=== PATIENT | female | born 1985 | race Caucasian/White ===

== ENCOUNTER 2017-07-31 22:59 | Emergency (ER) | payer MEDICAID ==
--- NOTE | 2017-07-31 23:16 | Emergency Department Record ---
History of Present Illness - General Chief complaint: Rash Stated complaint: RASH ALL OVER BODY Time Seen by Provider: 07/31/17 23:05 Source: Patient Mode of Arrival: Ambulatory Limitations: No limitations - History of Present Illness Initial comments: 32 yo female presents to ED for evaluation of a rash "all over my body" that began 3-4 days ago. Patient reports erythematous lesions diffusely that are itching in addition to mild swelling/redness to the right upper eyelid. Patient denies difficulty breathing, wheezing, or throat swelling symptoms. Patient denies any recent exposures. Patient denies health problems at her baseline. MD complaint: Rash Onset/Timin -: Days(s) Location: Generalized Severity: Moderate Quality: Other Consistency: Intermittent Improves with: None Worsens with: None Context: None Associated symptoms: Itching Treatments Prior to Arrival: None - Related Data Previous Rx's Medication Instructions Recorded Diphenhydramine HCl [Benadryl] 50 mg PO Q6H PRN #20 cap 07/31/17 Famotidine [Pepcid] 40 mg PO DAILY #14 tablet 07/31/17 Prednisone [Prednisone 20Mg] 20 mg PO TID #12 tab 07/31/17 Allergies Allergy/AdvReac Type Severity Reaction Status Date / Time No Known Allergies Allergy Unverified 09/01/16 10:12 Review of Systems Constitutional: Denies: Chills, Fever, Malaise, Night sweats Eyes: Denies: Eye discharge, Eye pain ENT: Denies: Congestion, Ear pain, Epistaxis Respiratory: Denies: Cough, Dyspnea Cardiovascular: Denies: Chest pain, Dyspnea on exertion Endocrine: Denies: Fatigue, Heat or cold intolerance Gastrointestinal: Denies: Abdominal pain, Nausea, Vomiting Genitourinary: Denies: Incontinence, Retention Musculoskeletal: Denies: Arthralgia, Back pain, Gout, Joint swelling Skin: Reports: Rash. Denies: Bruising, Change in color, Change in hair/nails Neurological: Denies: Abnormal gait, Confusion, Headache, Seizure Psychiatric: Denies: Anxiety Hematological/Lymphatic: Denies: Anemia, Blood Clots Physical Exam - General General Appearance: Alert, Oriented x3, Cooperative, No acute distress Limitations: No limitations - Head Head exam: Atraumatic, Normocephalic, Normal inspection Head exam detail: negative: Abrasion, Contusion, Hernandez's sign, General tenderness, Hematoma, Laceration - Eye Eye exam: Normal appearance. negative: Conjunctival injection, Periorbital swelling, Periorbital tenderness, Scleral icterus - ENT Ear exam: negative: Auricular hematoma, Auricular trauma Nasal Exam: negative: Active bleeding, Discharge, Dried blood, Foreign body Mouth exam: negative: Drooling, Laceration, Muffled voice, Tongue elevation - Neck Neck exam: Normal inspection. negative: Meningismus, Tenderness - Respiratory Respiratory exam: Normal lung sounds bilaterally. negative: Rales, Respiratory distress, Rhonchi, Stridor - Cardiovascular Cardiovascular Exam: Regular rate, Normal rhythm, Normal heart sounds - GI/Abdominal GI/Abdominal exam: Soft. negative: Rebound, Rigid, Tenderness - Rectal Rectal exam: Deferred - exam: Deferred - Extremities Extremities exam: Other (Mild hives present to the extremities diffusely). negative: Calf tenderness, Pedal edema, Tenderness - Back Back exam: Denies: CVA tenderness (R), CVA tenderness (L) - Neurological Neurological exam: Alert, Normal gait, Oriented X3 - Psychiatric Psychiatric exam: Normal affect, Normal mood - Skin Skin exam: Erythema Type of lesion: Rash Distribution of rash: Generalized Description of rash: Urticarial Course - Reevaluation(s) Reevaluation #1: 07/31/17 23:14 Examination appears c/w faint hives diffusely, will initiate treatment with Prednisone, Benadryl, and Pepcid as directed. Patient has no systemic signs of anaphylaxis, and appears stable for discharge at this time. Disposition Disposition: Discharge Clinical Impression: Hives Disposition: Home, Self-Care Condition: (2) Stable Instructions: Urticaria (ED) Additional Instructions: Return to ED if your symptoms worsen or if you have any concerns. Prednisone, Benadryl, and Pepcid as directed. Follow-up with your family doctor in 3-5 days as directed. Prescriptions: Diphenhydramine HCl [Benadryl] 50 mg PO Q6H PRN #20 cap PRN Reason: Itch/Hives Famotidine [Pepcid] 40 mg PO DAILY #14 tablet Prednisone [Prednisone 20Mg] 20 mg PO TID #12 tab Forms: Patient Portal Access Time of Disposition: 23:18 Quality - Quality Measures Quality Measures: N/A - Blood Pressure Screening Does Patient Have Any of the Following: No Blood Pressure Classification: Pre-Hypertensive BP Reading Systolic Measurement: 131 Diastolic Measurement: 84 Screening for High Blood Pressure: < Pre-Hypertensive BP, F/U Documented > [ G8950] Pre-Hypertensive Follow-up Interventions: Referral to alternative/primary care provider.
[2017-07-31] MEDS: DIPHENHYDRAMINE HCL 25 MG CAPSULE PO ONE (23:20)
[2017-07-31] MEDS: PREDNISONE 20 MG TAB PO ONE (23:20)
[2017-07-31] MEDS: FAMOTIDINE 20MG TABLET PO ONE (23:20)
== END 2017-07-31 23:25 | disposition home or self-care (01) ==
LOC: ER 22:59
DX: L50.9 Urticaria, unspecified (principal)
CPT/HCPCS: 99282; J7512

== ENCOUNTER 2018-03-22 21:28 | Emergency (ER) | payer BC ==
[2018-03-22] MEDS ORDERED: AZITHROMYCIN 500 MG TABLET PO ONE (21:50)
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
== END 2018-03-22 21:59 | disposition home or self-care (01) ==
LOC: ER 21:28
DX: H66.91 Otitis media, unspecified, right ear (principal); L55.1 Sunburn of second degree; R05 Cough; F17.210 Nicotine dependence, cigarettes, uncomplicated
CPT/HCPCS: 99282

== ENCOUNTER 2019-07-01 22:32 | Emergency (ER) | payer BC ==
[2019-07-01] MEDS ORDERED: KETOROLAC 30 MG/ML VIAL IVP ONE (22:39)
[2019-07-01] MEDS ORDERED: ASPIRIN 81 MG CHEWABLE TABLET PO ONE (22:39)
--- NOTE | 2019-07-01 22:44 | Emergency Department Record ---
History of Present Illness - General Chief Complaint: Chest Pain Stated Complaint: DIZZINESS,CHETY PAIN Time Seen by Provider: 07/01/19 22:33 Source: Patient Mode of Arrival: Ambulatory Limitations: No limitations - History of Present Illness Initial Comments: 34 yo female presents to ED for evaluation of chest pain symptoms that have been intermittent for the past 8 hours. Patient denies any activity that improves or worsens her symptoms, denies fevers, chills, or pain with deep inspiration. Patient denies history of DVT or PE, denies calf pain or swelling. Patient denies health problems at her baseline. MD Complaint: Chest pain Onset/Timin -: Hour(s) Pain Location: Left chest Pain Radiation: LUE Severity: Moderate Quality: Aching Consistency: Intermittent Improves With: Nothing Worsens With: Nothing Treatments Prior to Arrival: None - Related Data Allergies Allergy/AdvReac Type Severity Reaction Status Date / Time dust Allergy Uncoded 11/07/18 17:48 dust mites Allergy Uncoded 11/07/18 17:48 pet dander Allergy Uncoded 11/07/18 17:48 Review of Systems Constitutional: Denies: Chills, Fever, Malaise, Night sweats Eyes: Denies: Eye discharge, Eye pain ENT: Denies: Congestion, Ear pain, Epistaxis Respiratory: Denies: Cough, Dyspnea Cardiovascular: Reports: Chest pain. Denies: Dyspnea on exertion Endocrine: Denies: Fatigue, Heat or cold intolerance Gastrointestinal: Denies: Abdominal pain, Nausea, Vomiting Genitourinary: Denies: Incontinence, Retention Musculoskeletal: Denies: Arthralgia, Back pain Skin: Denies: Bruising, Change in color Neurological: Denies: Abnormal gait, Confusion, Headache, Seizure Psychiatric: Denies: Anxiety Hematological/Lymphatic: Denies: Anemia, Blood Clots Past Medical History - SOCIAL HISTORY Smoking Status: Current every day smoker - RESPIRATORY Hx Respiratory Disorders: Yes Comment:: seasonal allergies - CARDIOVASCULAR Hx Cardio Disorders: No - NEURO Hx Neuro Disorders: No - GI Hx GI Disorders: No - Hx Genitourinary Disorders: No - ENDOCRINE Hx Endocrine Disorders: No - MUSCULOSKELETAL Hx Musculoskeletal Disorders: No - PSYCH Hx Psych Problems: No - HEMATOLOGY/ONCOLOGY Hx Hematology/Oncology Disorders: No Family Medical History Any Significant Family History?: Yes Hx Cancer: Mother, Brother/Sister, Grandparents *Diabetes Comment: aunts/uncles Hx Heart Disease: Mother Hx Stroke: Father Physical Exam - General General Appearance: Alert, Oriented x3, Cooperative, Mild distress Limitations: No limitations - Head Head exam: Atraumatic, Normocephalic, Normal inspection Head exam detail: negative: Abrasion, Contusion, Hernandez's sign, General tenderness, Hematoma, Laceration - Eye Eye exam: Normal appearance. negative: Conjunctival injection, Periorbital swelling, Periorbital tenderness, Scleral icterus - ENT Ear exam: negative: Auricular hematoma, Auricular trauma Nasal Exam: negative: Active bleeding, Discharge, Dried blood, Foreign body Mouth exam: negative: Drooling, Laceration, Muffled voice, Tongue elevation - Neck Neck exam: Normal inspection. negative: Meningismus, Tenderness - Respiratory Respiratory exam: Normal lung sounds bilaterally. negative: Rales, Respiratory distress, Rhonchi, Stridor - Cardiovascular Cardiovascular Exam: Regular rate, Normal rhythm, Normal heart sounds - GI/Abdominal GI/Abdominal exam: Soft. negative: Rebound, Rigid, Tenderness - Rectal Rectal exam: Deferred - exam: Deferred - Extremities Extremities exam: Normal inspection. negative: Pedal edema, Tenderness - Back Back exam: Denies: CVA tenderness (R), CVA tenderness (L) - Neurological Neurological exam: Alert, Normal gait, Oriented X3 - Psychiatric Psychiatric exam: Normal affect, Normal mood - Skin Skin exam: Normal color. negative: Abrasion Type of lesion: negative: abrasion Course - Reevaluation(s) Reevaluation #1: 07/01/19 22:38 EKG: NSR 92 Normal axis, normal intervals No acute ST-T wave changes PERC clinical decision rule was applied, and the patient does not have any of the following: -Age > 50 years -Pulse > 100 -Oxygen Saturation < 94% -History of Hemoptysis -Unilateral leg swelling -History or PE/DVT -Recent surgery or Trauma -Oral contraceptive/Hormone use Laboratory studies were reviewed and appear grossly unremarkable for an acute process except for the following: Hgb 10.1 The patient was deemed to be low-risk for cardiac disease based on the patients history and evaluation in the ED, HEART Score was applied and found to be 0. As a result, repeat Troponin in 3-hours appears appropriate and if negative for myocardial injury, the patient may be discharged home with appropriate outpatient follow-up for further evaluation. 07/01/19 23:06 Reevaluation #2: 07/01/19 23:14 CXR: No acute process Patient was updated on all results as well as plan for repeat Troponin at 1:35 AM as her Heart Score is 0. Patient and her SO are in agreement with the plan of care as discussed. Reevaluation #3: 07/02/19 02:03 Repeat Troponin appears negative for myocardial injury. Patient appears stable for discharge at this time. Medical Decision Making - Lab Data Result diagrams: 07/01/19 22:35 07/01/19 22:35 Disposition Disposition: Discharge Clinical Impression: Atypical chest pain Disposition: Home, Self-Care Condition: (2) Stable Instructions: Chest Pain (ED) Additional Instructions: Return to ED if your symptoms worsen or if you have any concerns. Follow-up with your family doctor in 3-5 days as directed. Forms: Patient Portal Access Time of Disposition: 02:03 Quality - Quality Measures Quality Measures: N/A - Blood Pressure Screening Does Patient Have Any of the Following: No Blood Pressure Classification: Pre-Hypertensive BP Reading Systolic Measurement: 130 Diastolic Measurement: 81 Screening for High Blood Pressure: < Pre-Hypertensive BP, F/U Documented > [G8950] Pre-Hypertensive Follow-up Interventions: Referral to alternative/primary care provider.
[2019-07-01 22:48] LABS: ABSOLUTE NEUTROPHIL COUNT 6.02; BASO % 0.2 % (0-6); EOS % 0.9 % (0-6); GRAN % 64.2 % (47-80); HEMATOCRIT 33.1 % (35.0-47.0); HEMOGLOBIN 10.1 gm/dl (11.6-16.0); LYMPH % 27.5 % (16-45); MEAN CELL VOLUME 74.2 fl (81-97); MEAN CORPUSCULAR HEMOGLOBIN 22.6 pg (27-33); MEAN CORPUSCULAR HGB CONC 30.5 g/dl (32-36); MEAN PLATELET VOLUME 10.7 fl (7.4-10.4); MONO % 7.2 % (0-9); PLATELET COUNT 212 K/uL (130-400); RED BLOOD COUNT 4.46 M/uL (3.80-5.40); RED CELL DISTRIBUTION WIDTH 16.5 % (11.5-14.5); WHITE BLOOD COUNT W/O DIFF 9.4 K/uL (4.2-12.2)
[2019-07-01 22:57] LABS: BLOOD UREA NITROGEN 9 mg/dL (6-20); CREATININE 0.7 mg/dL (0.5-0.9); EST GLOMERULAR FILTRATION RATE > 60 mL/min
[2019-07-01 22:58] LABS: TOTAL PROTEIN 7.3 g/dL (6.6-8.7)
[2019-07-01 23:00] LABS: GLUCOSE,RANDOM 94 mg/dL (74-109)
[2019-07-01 23:03] LABS: ALB/GLOB RATIO 1.6 (1.1-1.8); ALBUMIN 4.5 g/dL (4.0-5.0); ALKALINE PHOSPHATASE 88 U/L (35-104); ALT/SGPT 8 U/L (<33); AST/SGOT 14 U/L (10.0-35.0)
--- NOTE | 2019-07-03 07:24 | RADIOLOGY REPORT ---
EXAM: CHEST, TWO VIEWS HISTORY: INTERMITTENT LEFT SIDED CHEST PAIN AND DIZZINESS FOR EIGHT HOURS. TECHNIQUE: Two views of the chest were obtained. Comparison: Prior chest radiographs 11/13/17. FINDINGS: The cardiomediastinal silhouette appears within normal limits. No focal consolidation, pneumothorax, or pleural effusions are identified. The vertebral body heights and alignment appear within normal limits. IMPRESSION: NO ACUTE CARDIOPULMONARY PROCESS IDENTIFIED. JOB NUMBER: [id number] MTDD
== END 2019-07-02 02:17 | disposition home or self-care (01) ==
LOC: ER 22:32
DX: R07.89 Other chest pain (principal); R42 Dizziness and giddiness; F17.210 Nicotine dependence, cigarettes, uncomplicated
CPT/HCPCS: 99284 ×2; 96374; 85025; 80053; 84484; 71046; 93005; 93010; J1885

== ENCOUNTER 2019-11-09 16:53 | Emergency (ER) | payer BC ==
--- NOTE | 2019-11-09 17:16 | Emergency Department Record ---
History of Present Illness - General Chief complaint: Flu Like Symptoms Stated complaint: chest congestion,cough Time Seen by Provider: 11/09/19 16:57 Source: Patient Mode of Arrival: Ambulatory Limitations: No limitations - History of Present Illness Initial comments: pt has been sick for a week with congestion, fevers, cough productive green. she went to [facility] 4 days ago and had a negative flu swab. her symptoms continued and worsened. Onset/Timin -: Week(s) Location: Generalized Severity scale (1-10): 3 Quality: Aching Consistency: Constant Improves with: None Worsens with: None Associated Symptoms: Headaches, Other - [place] Coma Scale Eye Response: (4) Open spontaneously Motor Response: (6) Obeys commands Verbal Response: (5) Oriented [place] Total: 15 - Related Data Previous Rx's Medication Instructions Recorded Azithromycin [Zithromax] 250 mg PO DAILY #4 tab 11/09/19 Allergies Allergy/AdvReac Type Severity Reaction Status Date / Time dust Allergy Uncoded 11/07/18 17:48 dust mites Allergy Uncoded 11/07/18 17:48 pet dander Allergy Uncoded 11/07/18 17:48 Travel Screening - Travel/Exposure Within Last 30 Days Have you traveled within the last 30 days?: No Review of Systems Reviewed: No additional complaints except as noted below Constitutional: Reports: As per HPI. Denies: Chills, Fever, Malaise, Night sweats, Weakness, Weight change Eyes: Reports: As per HPI. Denies: Eye discharge, Eye pain, Photophobia, Vision change ENT: Reports: As per HPI. Denies: Congestion, Dental pain, Ear pain, Epistaxis, Hearing loss, Throat pain Respiratory: Reports: As per HPI. Denies: Cough, Dyspnea, Hemoptysis, Stridor, Wheezes Cardiovascular: Reports: As per HPI. Denies: Arrhythmia, Chest pain, Dyspnea on exertion, Edema, Murmurs, Orthopnea, Palpitations, Paroxysmal nocturnal dyspnea, Rheumatic Fever, Syncope Endocrine: Reports: As per HPI. Denies: Fatigue, Heat or cold intolerance, Polydipsia, Polyuria Gastrointestinal: Reports: As per HPI. Denies: Abdominal pain, Constipation, Diarrhea, Hematemesis, Hematochezia, Melena, Nausea, Vomiting Genitourinary: Reports: As per HPI. Denies: Abnormal menses, Discharge, Dyspareunia, Dysuria, Frequency, Hematuria, Incontinence, Retention, Urgency Musculoskeletal: Reports: As per HPI. Denies: Arthralgia, Back pain, Gout, Joint swelling, Myalgia, Neck pain Skin: Reports: As per HPI. Denies: Bruising, Change in color, Change in hair/nails, Lesions, Pruritus, Rash Neurological: Reports: As per HPI. Denies: Abnormal gait, Confusion, Headache, Numbness, Paresthesias, Seizure, Tingling, Tremors, Vertigo, Weakness Psychiatric: Reports: As per HPI. Denies: Anxiety, Auditory hallucinations, Depression, Homicidal thoughts, Suicidal thoughts, Visual hallucinations Hematological/Lymphatic: Reports: As per HPI. Denies: Anemia, Blood Clots, Easy bleeding, Easy bruising, Swollen glands Past Medical History - SOCIAL HISTORY Smoking Status: Current every day smoker - RESPIRATORY Hx Respiratory Disorders: Yes Comment:: seasonal allergies - CARDIOVASCULAR Hx Cardio Disorders: No - NEURO Hx Neuro Disorders: No - GI Hx GI Disorders: No - Hx Genitourinary Disorders: No - ENDOCRINE Hx Endocrine Disorders: No - MUSCULOSKELETAL Hx Musculoskeletal Disorders: No - PSYCH Hx Psych Problems: No - HEMATOLOGY/ONCOLOGY Hx Hematology/Oncology Disorders: No Family Medical History Any Significant Family History?: Yes Hx Cancer: Mother, Brother/Sister, Grandparents *Diabetes Comment: aunts/uncles Hx Heart Disease: Mother Hx Stroke: Father Physical Exam - General General Appearance: Alert, Oriented x3, Cooperative, Mild distress - Head Head exam: Normal inspection - Eye Eye exam: Normal appearance, PERRL, EOMI Pupils: Normal accommodation - ENT ENT exam: Normal exam, Mucous membranes moist, Normal external ear exam, Normal orophraynx Ear exam: Normal external inspection. negative: External canal tenderness Nasal Exam: Normal inspection. negative: Discharge, Sinus tenderness Mouth exam: Normal external inspection, Tongue normal Teeth exam: Normal inspection. negative: Dental caries Throat exam: Normal inspection. negative: Tonsillar erythema, Tonsillar exudate - Neck Neck exam: Normal inspection, Full ROM. negative: Tenderness - Respiratory Respiratory exam: Normal lung sounds bilaterally. negative: Respiratory distress - Cardiovascular Cardiovascular Exam: Regular rate, Normal rhythm, Normal heart sounds - GI/Abdominal GI/Abdominal exam: Soft, Normal bowel sounds. negative: Tenderness - Rectal Rectal exam: Deferred - exam: Deferred - Extremities Extremities exam: Normal inspection, Full ROM, Normal capillary refill. negative: Tenderness - Back Back exam: Reports: Normal inspection, Full ROM. Denies: Muscle spasm, Rash noted, Tenderness - Neurological Neurological exam: Alert, CN II-XII intact, Normal gait, Oriented X3 - Psychiatric Psychiatric exam: Normal affect, Normal mood - Skin Skin exam: Dry, Intact, Normal color, Warm Course Vital Signs 11/09/19 17:04 Temperature 98.6 F Pulse Rate 79 Respiratory 20 Rate Blood Pressure 110/88 Pulse Ox 98 Disposition Disposition: Discharge Clinical Impression: Bronchitis Disposition: Home, Self-Care Condition: (1) Good Instructions: Acute Bronchitis (ED) Additional Instructions: follow up with family doctor. return sooner if worse. dayquil and nyquil as needed Prescriptions: Azithromycin [Zithromax] 250 mg PO DAILY #4 tab Forms: Patient Portal Access, Return to Work/School Quality - Quality Measures Quality Measures: N/A - Blood Pressure Screening Does Patient Have Any of the Following: No Blood Pressure Classification: Pre-Hypertensive BP Reading Systolic Measurement: 110 Diastolic Measurement: 88 Screening for High Blood Pressure: < Pre-Hypertensive BP, F/U Documented > [G8950] Pre-Hypertensive Follow-up Interventions: Follow-up with rescreen every year.
[2019-11-09 17:31] LABS: INFLUENZA A NEGATIVE (NEGATIVE); INFLUENZA B NEGATIVE (NEGATIVE)
--- NOTE | 2019-11-09 17:47 | RADIOLOGY REPORT ---
EXAMINATION: Two View Chest Radiographs EXAM DATE: 11/09/2019 5:18 PM TECHNIQUE: Frontal and lateral views INDICATION: cough COMPARISON: This x-ray 07/01/2019 ENCOUNTER: Not applicable FINDINGS: The heart, mediastinum, and pulmonary vasculature are normal. No lung consolidation or pleural effu sions are present. IMPRESSION: No acute cardiopulmonary disease is present. Dictated by: Trace Narayanan MD on 11/09/2019 5:44 PM. .
[2019-11-09] MEDS ORDERED: AZITHROMYCIN 500 MG TABLET PO ONE (18:01)
== END 2019-11-09 18:23 | disposition home or self-care (01) ==
LOC: ER 16:53
DX: J20.9 Acute bronchitis, unspecified (principal); F17.210 Nicotine dependence, cigarettes, uncomplicated
CPT/HCPCS: 71046; 87400; 99283